=== PATIENT | male | born 1940 | race Caucasian/White ===

== ENCOUNTER 2024-04-21 05:24 | Outpatient (CLI) | payer OTHER, SELFPAY | END 2024-04-21 05:25 | disposition home or self-care (01) | LOC: AMB 05-16 22:13 | PROVIDERS: PCP Internal Medicine; Visit Provider Family Medicine | DX: R53.1 Weakness (principal) | CPT/HCPCS: A0998 ==

== ENCOUNTER 2024-04-25 17:51 | Emergency (ER) | payer OTHER, SELFPAY ==
[2024-04-25 17:56] VITALS: BP 155/84; PULSE 112; RESP 22; TEMP 37.6; O2SAT 95; BMI 38.7
[2024-04-25 18:18] VITALS: O2SAT 95
--- NOTE | 2024-04-25 18:19 | CRLHL7_ITS ---
For Patients: As a result of the Century Cures Act, medical imaging exams and procedure reports are released immediately into your electronic medical record. You may view this report before your referring provider. If you have questions, please contact your health care provider. INDICATION: Dyspnea. TECHNIQUE: Chest radiograph, 1 view. COMPARISON: None. FINDINGS: Cardiovascular/Mediastinum: Normal heart size. Unremarkable. Lungs: No focal consolidation. Airways: Trachea remains midline. Pleura: No pleural effusions or pneumothorax. Bones: No acute osseous abnormalities. Upper abdomen: Unremarkable. IMPRESSION: No acute cardiopulmonary process. No focal consolidation seen to suggest pneumonia. Dictated by Jakub Palacios MD @ 04/25/2024 6:53:26 PM (Electronically Signed)
--- NOTE | 2024-04-25 18:20 | ED_ITS ---
HPI - General Adult General Chief complaint: Fall/Minor Trauma Stated complaint: Covid symptoms, fall on Saturday, tested positive Time Seen by Provider: 04/25/24 18:07 History of Present Illness HPI narrative: Patient is an 83 year white male who lives at [facility] in [facility]. The patient this point has had a runny nose and now increasing cough. Had a home COVID test was positive today. He does not feel markedly short of breath but has had a regular cough. He is living at the [facility] he is able to isolate in his room. Does not feel short of breath. He did fall earlier in the week and needed help from EMS to get up but he does not feel weak and he is wal debbie pretty well right now with his walker. He is here with his daughter was concerned and [facility]. patient has a history of what looks like mild dementia, hard of hearing, and he is on apixaban donepezil and sertraline. No swelling or edema. The patient has been taking all his medications. Patient did report that he had a runny nose when his family left for vacation. They came back today and noticed he was coughing more. His O2 sat today is 95% on room air and he has got a low-grade temperature 99.7?. The [facility]. Related Data Home Medications ?Medication ?Instructions ?Recorded ?Confirmed apixaban 5 mg tablet (Eliquis) 5 mg PO BID 04/25/24 04/25/24 atorvastatin 40 mg tablet 40 mg PO QHS 04/25/24 04/25/24 donepezil 10 mg tablet 10 mg PO DAILY 04/25/24 04/25/24 omega-3 fatty acids 500 mg capsule 500 mg PO DAILY 04/25/24 04/25/24 (MaxEPA) sertraline 100 mg tablet 100 mg PO DAILY 04/25/24 04/25/24 Allergies Allergy/AdvReac Type Severity Reaction Status Date / Time No Known Drug Allergies Allergy Verified 04/25/24 18:03 Review of Systems Status of ROS: Reports: 6 or more systems reviewed and unremarkable except as noted in History and below [facility] Medical History Depression ?F32.A - Depression, unspecified (ICD-10) Hypertension ?I10 - Essential (primary) hypertension (ICD-10) Hyperlipidemia ?E78.5 - Hyperlipidemia, unspecified (ICD-10) Hyperlipidemia ?E78.5 - Hyperlipidemia, unspecified (ICD-10) 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 unspecified ear and external auricular canal (ICD-10) TIA (transient ischemic attack) ?G45.9 - Transient cerebral ischemic attack, unspecified (ICD-10) DVT (deep venous thrombosis) ?I82.409 - Acute embolism and thrombosis of unspecified deep veins of unspecified lower extremity (ICD-10) Pulmonary embolism ?I26.99 - Other pulmonary embolism without acute cor pulmonale (ICD-10) Surgical History History of bilateral knee replacement ?Z96.653 - Presence of artificial knee joint, bilateral (ICD-10) Social History Smoking Status: Former smoker Do you use any of these nicotine containing products: None How often do you have a drink containing alcohol: never How often do you have six or more drinks on one occasion: Never AUDIT-C Alcohol total score: 0 Non-prescribed substance use: denies use service: Yes Exam Narrative: Exam Narrative: Objective: Patient's temp is 99.7? pulse 112 and regular blood pressure is 155/84 O2 sat on room air is 95% In general patient apparent distress he is ambulating with his walker quite steadily, AO walked into the room with him. HEENT is unremarkable Neck is supple Chest diminished air exchange bilaterally but no rales or wheezing Heart rhythm regular 2/6 systolic murmur occasional ectopic beat noted Abdomen obese benign nontender Extremities are no edema neurologic nonfocal Const: Vital Signs, click to edit/add: Vital Signs - 24 hr 04/25/24 17:56 04/25/24 18:18 04/25/24 19:22 Temperature 99.7 F H 99.5 F Pulse Rate [Pulse Oximeter] 112 H 100 Respiratory Rate 22 22 Blood Pressure [Ri ght Upper Arm] 155/84 H 145/74 H Pulse Oximetry 95 95 95 Oxygen Delivery Me thod Room Air Room Air 04/25/24 19:25 Temperature 99.5 F Pulse Rate [Pulse Oximeter] 100 Respiratory Rate 22 Blood Pressure [Ri ght Upper Arm] 145/74 H Pulse Oximetry Oxygen Delivery Me thod Course Vital Signs Vital signs: Initial Vital Signs Temperature 99.7 F H 04/25/24 17:56 Temperature Source Temporal Artery Scan 04/25/24 17:56 Pulse Rate 112 H 04/25/24 17:56 Respiratory Rate 22 04/25/24 17:56 Blood Pressure 155/84 H 04/25/24 17:56 Blood Pressure Mean 107 H 04/25/24 17:56 Blood Pressure Position Sitting 04/25/24 17:56 Pulse Oximetry 95 04/25/24 17:56 Oxygen Delivery Method Room Air 04/25/24 17:56 Vital Signs Temperature 99.7 F H 04/25/24 17:56 Pulse Rate 112 H 04/25/24 17:56 Respiratory Rate 22 04/25/24 17:56 Blood Pressure 155/84 H 04/25/24 17:56 Pulse Oximetry 95 04/25/24 17:56 Oxygen Delivery Method Room Air 04/25/24 17:56 Temperature 99.5 F 04/25/24 19:25 Pulse Rate 100 04/25/24 19:25 Respiratory Rate 22 04/25/24 19:25 Blood Pressure 145/74 H 04/25/24 19:25 Pulse Oximetry 95 04/25/24 19:22 Oxygen Delivery Method Room Air 04/25/24 19:22 Medications Administered Medications: Discontinued Medications Generic Name Dose Route Start Last Admin Trade Name Freq PRN Reason Stop Dose Admin Sodium Chloride 500 mls @ 500 mls/hr 04/25/24 18:18 04/25/24 19:14 0.9 % Sodium Chloride 500 Ml IV 04/25/24 19:17 Infused .Q1H ONE Infusion Methylprednisolone Sodium Succinate 125 mg 04/25/24 18:19 04/25/24 19:00 Methylprednisolone Sod Succ 62.5 Mg/Ml (125) IVP 04/25/24 18:20 125 mg ONCE ONE Administration Medical Decision Making MDM Narrative Medical decision making narrative: 83-year-old male with diagnosis of COVID today on a home test. His symp toms are consistent with COVID. I think it would be appropriate to check an x- ray of his chest to see if he has any evidence of segmental pneumonia. Certainly even if we see that the could be related to a viral infection. But would probably cover with him with antibiotics and steroids at his age. He did apparently have some faint wheezing at the center. And I think it be appropriate to give him a few days of steroid medication if indicated. Will check his blood work as well. Will check a chest x-ray. Disposition pending findings above. Addendum 7:00 p.m.: Patient has a fever, he does have a positive COVID test at home, he does not describe chronic lung disease but I do not have his medical record. I do see on his chest x-ray one view these got some left lower lobe infiltrate that I think is probably related to COVID but radiologist did not think it was pneumonia. I think in the interest of caution I would cover him with doxycycline 100 b.i.d. x7 days as well as prednisone 20 mg b.i.d. for a few days to make sure that he has adequate help with wheezing and potential bacterial component of an infection. Or superinfection. With his COVID he needs isolate until he is feeling well per the [employer] rules, he should at least be fever free and feel well for 3-4 days before he is out back in the population. Return if problems or concerns. Push p.o. intake. Lab Data Labs: Lab Results 04/25/24 Range/Units 18:35 WBC 5.02 (4.50-11.00) K/uL RBC 3.68 L (4.30-5.90) m/uL Hgb 10.9 L (13.5-17.5) gm/dL Hct 34.4 L (37.0-53.0) % MCV 94 (80-100) fL MCH 30 (26-34) pg MCHC 32 (32-36) gm/dL RDW Coeff of Katt 13.9 (11.5-15.5) % Plt Count 269 (140-440) K/uL Neut % (Auto) 82.6 H (42.0-72.0) % Lymph % (Auto) 10.2 L (20-44) % [place] % (Auto) 4.6 (0.0-11.0) % Eos % (Auto) 2.4 (0.0-7.0) % Baso % (Auto) 0.2 (0.0-3.0) % Neut # (Auto) 4.10 (1.7-7.0) K/uL Lymph # (Auto) 0.50 L (0.90-2.90) K/uL [place] # (Auto) 0.20 (0.00-0.90) K/UL Eos # (Auto) 0.12 (0.00-0.50) K/uL Baso # (Auto) 0.01 (0.00-0.30) K/uL Abs Immat Gran (auto) 0.00 (0.00-0.30) K/uL Imm/Tot Granulo (auto) 0.0 % Sodium 136 (135-149) mmol/L Potassium 4.0 (3.6-5.1) mmol/L Chloride 103 (96-114) mmol/L Carbon Dioxide 28 (20-32) mmol/L Anion Gap 5 L (7-15) mEq/L BUN 15 (7-30) mg/dL Creatinine 1.0 (0.5-1.5) mg/dL Estimated Creat Clear 49.62 Estimated GFR 74 ml/min Glucose 125 H (60-115) mg/dL Calcium 8.7 (8.4-10.6) mg/dL Discharge Plan Discharge Clinical Impression: COVID-19 Patient Disposition: Home w/ Parent or Adult Condition: Stable Additional Instructions: Light activity, adequate fluid intake, prednisone 20 mg b.i.d. for 3 days, update your regular doctor within the next 48 hours with symptoms, return to ED sooner worsening breathing or other concerns.also take doxycycline Activity Level: Light activity Discharge Diet: Regular Prescriptions: No Action donepezil 10 mg tablet 10 mg PO DAILY sertraline 100 mg tablet 100 mg PO DAILY atorvastatin 40 mg tablet 40 mg PO QHS Eliquis 5 mg tablet 5 mg PO BID MaxEPA 500 mg capsule 500 mg PO DAILY Stand Alone Forms: [employer] Info Instructions
[2024-04-25] MEDS: 0.9 % SODIUM CHLORIDE 500 ML 500 ML IV (18:30)
[2024-04-25 18:45] LABS: Basophils Absolute Auto 0.01 K/uL (0.00-0.30); Basophils Percent Auto 0.2 % (0.0-3.0); Eosinophils Absolute Auto 0.12 K/uL (0.00-0.50); Eosinophils Percent Auto 2.4 % (0.0-7.0); Hematocrit 34.4 % (37.0-53.0); Hemoglobin* 10.9 gm/dL (13.5-17.5); Lymphocytes Percent Auto 10.2 % (20-44); Mean Corpuscular HGB Conc 32 gm/dL (32-36); Mean Corpuscular Hemoglobin 30 pg (26-34); Mean Corpuscular Volume 94 fL (80-100); Monocytes Percent Auto 4.6 % (0.0-11.0); Neutrophils Percent Auto 82.6 % (42.0-72.0); Platelet Count* 269 K/uL (140-440); RDW Coefficient of Variation % 13.9 % (11.5-15.5); Red Blood Count 3.68 m/uL (4.30-5.90); White Blood Count* 5.02 K/uL (4.50-11.00)
[2024-04-25 18:49] LABS: Slide Review Reflex No
[2024-04-25 18:58] LABS: Chloride* 103 mmol/L (96-114); Sodium* 136 mmol/L (135-149)
[2024-04-25] MEDS: METHYLPREDNISOLONE SOD SUCC 62.5 MG/ML (125) 125 MG IVP (19:00)
[2024-04-25 19:01] LABS: Est. Creatinine Clearance* 49.62; Estimated Glomerular Filt Rate 74 ml/min
[2024-04-25 19:02] LABS: Anion Gap 5 mEq/L (7-15); Blood Urea Nitrogen* 15 mg/dL (7-30); Calcium* 8.7 mg/dL (8.4-10.6); Carbon Dioxide* 28 mmol/L (20-32); Glucose* 125 mg/dL (60-115)
[2024-04-25 19:22] VITALS: BP 145/74; PULSE 100; RESP 22; TEMP 37.5; O2SAT 95
[2024-04-25 19:25] VITALS: BP 145/74; PULSE 100; RESP 22; TEMP 37.5
== END 2024-04-25 19:26 | disposition home or self-care (01) ==
PROVIDERS: Emergency Provider Family Medicine; PCP Internal Medicine
DX: U07.1 COVID-19 (principal)
CPT/HCPCS: 36415; 71045; 80048; 85025; 94761; 96374; 99284; J2919; J7030

== ENCOUNTER 2024-07-03 11:36 | Emergency (ER) | payer OTHER, SELFPAY ==
[2024-07-03 11:49] VITALS: BP 140/84; PULSE 85; RESP 28; TEMP 37.6; O2SAT 97; BMI 81.1
--- NOTE | 2024-07-03 12:12 | CRLHL7_ITS ---
For Patients: As a result of the Cures Act, medical imaging exams and procedure reports are released immediately into your electronic medical record. You may view this report before your referring provider. If you have questions, please contact your health care provider. INDICATION: : Shortness of breath COMPARISON: None TECHNIQUE: Two view(s) of the chest FINDINGS: The cardiomediastinal silhouette and pulmonary vasculature are unremarkable. There is no focal airspace consolidation, pleural effusion, or pneumothorax. No displaced fractures. Degenerative changes of the shoulders and spine. IMPRESSION: No acute cardiopulmonary process. Dictated by Pedro Parr MD @ 07/03/2024 1:22:00 PM (Electronically Signed)
[2024-07-03 12:58] LABS: Basophils Absolute Auto 0.02 K/uL (0.00-0.30); Basophils Percent Auto 0.4 % (0.0-3.0); Hematocrit 38.5 % (37.0-53.0); Hemoglobin* 12.1 gm/dL (13.5-17.5); Immature Granulocytes Abs Auto 0.03 K/uL (0.00-0.30); Immature Granulocytes Pct Auto 0.6 %; Lymphocytes Percent Auto 15.1 % (20-44); Mean Corpuscular HGB Conc 31 gm/dL (32-36); Mean Corpuscular Hemoglobin 29 pg (26-34); Mean Corpuscular Volume 93 fL (80-100); Monocytes Percent Auto 6.2 % (0.0-11.0); Neutrophils Percent Auto 73.7 % (42.0-72.0); Platelet Count* 205 K/uL (140-440); RDW Coefficient of Variation % 15.5 % (11.5-15.5); Red Blood Count 4.14 m/uL (4.30-5.90); White Blood Count* 5.04 K/uL (4.50-11.00)
[2024-07-03 13:00] LABS: Slide Review Reflex No
[2024-07-03 13:02] LABS: Albumin* 4.6 g/dL (3.3-5.0); Chloride* 102 mmol/L (96-114)
[2024-07-03 13:03] LABS: Sodium* 137 mmol/L (135-149)
[2024-07-03 13:05] LABS: Creatinine* 0.9 mg/dL (0.5-1.5); Est. Creatinine Clearance* 50.49; Estimated Glomerular Filt Rate 84 ml/min
[2024-07-03 13:06] LABS: Alanine Aminotransferase* 13 U/L (4-50); Alkaline Phosphatase* 63 U/L (40-150); Anion Gap 10 mEq/L (7-15); Aspartate Amino Transferase* 26 U/L (12-35); Bilirubin Direct* 0.3 mg/dL (0.0-0.5); Bilirubin Total* 0.6 mg/dL (0.1-1.5); Blood Urea Nitrogen* 13 mg/dL (7-30); Carbon Dioxide* 25 mmol/L (20-32); Glucose* 129 mg/dL (60-115); Total Protein* 7.6 g/dL (6.0-8.3)
[2024-07-03 13:07] LABS: Calcium* 9.4 mg/dL (8.4-10.6)
[2024-07-03 13:17] LABS: NT Pro B Type NatriureticPept* 367 pg/mL
[2024-07-03 13:24] LABS: Troponin I* < 0.01 ng/mL (0.01-0.04)
--- NOTE | 2024-07-03 13:38 | ED.GENADULT ---
HPI - General Adult General Chief complaint: Headache/Migraine Stated complaint: headache, twitching, vaccinated yesterday Time Seen by Provider: 07/03/24 11:42 Source: patient Mode of arrival: ambulatory Limitations: no limitations History of Present Illness HPI narrative: With 84-year-old male presenting today with several concerns. He has pain behind his right ear. This has been present for about 2 months. He states that the pain comes and goes. He describes it as a muscle spasm. Sometimes it causes full headache. 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 He denies any fevers or chills. He is not coughing. He denies any blurry vision or changes in his hearing. He denies any changes in his speech. There is no pain with closing and opening of the jaw. There is no drainage from the ear. He does have hearing loss and uses a hearing aid, has not had his hearing aid in place for quite some time secondary to the discomfort. Although he does state that putting the hearing aid in does not increased pain. He is also concerned about lower extremity swelling. It has been swollen for quite some time but in the last couple of weeks the swelling has gotten worse. He denies any shortness of breath, no chest pain. The patient does not take a diuretic. He has no history of congestive heart failure. Patient has dementia, is a very poor historian. Family member in the room is able to give a lot of history. Related Data Home Medications ?Medication ?Instructions ?Recorded ?Confirmed apixaban 5 mg tablet (Eliquis) 5 mg PO BID 04/25/24 04/25/24 atorvastatin 40 mg tablet 40 mg PO QHS 04/25/24 04/25/24 donepezil 10 mg tablet 10 mg PO DAILY 04/25/24 04/25/24 omega-3 fatty acids 500 mg capsule 500 mg PO DAILY 04/25/24 04/25/24 (MaxEPA) sertraline 100 mg tablet 100 mg PO DAILY 04/25/24 04/25/24 Allergies Allergy/AdvReac Type Severity Reaction Status Date / Time No Known Drug Allergies Allergy Verified 04/25/24 18:03 Review of Systems Status of ROS: Reports: 10 or more systems reviewed and unremarkable except as noted in History and below [facility] Medical History Depression ?F32.A - Depression, unspecified (ICD-10) Hypertension ?I10 - Essential (primary) hypertension (ICD-10) Hyperlipidemia ?E78.5 - Hyperlipidemia, unspecified (ICD-10) Hyperlipidemia ?E78.5 - Hyperlipidemia, unspecified (ICD-10) 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 unspecified ear and external auricular canal (ICD-10) TIA (transient ischemic attack) ?G45.9 - Transient cerebral ischemic attack, unspecified (ICD-10) DVT (deep venous thrombosis) ?I82.409 - Acute embolism and thrombosis of unspecified deep veins of unspecified lower extremity (ICD-10) Pulmonary embolism ?I26.99 - Other pulmonary embolism without acute cor pulmonale (ICD-10) Surgical History History of bilateral knee replacement ?Z96.653 - Presence of artificial knee joint, bilateral (ICD-10) Social History Smoking Status: Former smoker Do you use any of these nicotine containing products: None Second hand tobacco smoke exposure: No How often do you have a drink containing alcohol: never How often do you have six or more drinks on one occasion: Never AUDIT-C Alcohol total score: 0 Non-prescribed substance use: denies use service: Yes Exam Narrative: Exam Narrative: Well-nourished well-developed patient in no acute distress. Patient speaks in full sentences without needing to catch their breath. HEENT: Normocephalic atraumatic. Pupils are equally round reactive to light. Extraocular muscles are intact. Conjunctivae are moist without any icterus noted. Moist mucous membranes. Posterior pharynx is normal. Neck is soft without any lymphadenopathy or thyromegaly. No masses are appreciated. Ears have normal external appearance. The area of tenderness is not tender to palpation, there is no swelling or bogginess noted. He can open and close his jaw without any discomfort. There is no abnormalities noted inside of the mouth aside from some poor dentition but no evidence of infection. TMs are clear bilaterally, ear canals appear normal. He has tenderness with tugging of the ear. No tenderness noted at the back of the head. Cardiovascular: Heart is regular rate and rhythm S1 and S2 are present without any murmurs. Lungs: Clear to auscultation bilaterally no wheezes rhonchi or rales are appreciated. Patient takes deep breaths without any discomfort. Abdomen: Soft and nontender nondistended with normal bowel sounds. Extremities: 2+ pitting edema bilaterally. Skin: Well perfused without any obvious rashes. Const: Vital Signs, click to edit/add: Vital Signs - 24 hr 07/03/24 11:49 Temperature 99.6 F Pulse Rate [Pulse Oximeter] 85 Respiratory Rate 28 H Blood Pressure [Ri ght Forearm] 140/84 H Pulse Oximetry 97 Oxygen Delivery Me thod Room Air Course Course ED Course: Differential diagnosis at this time includes TMJ dysfunction, occipital neuralgia, migraine, muscle spasm, giant cell arteritis-atypical presentation. Started with some blood work: CBC is unremarkable. Normal chemistries. Normal troponin. Normal CRP. Unremarkable BNP at 367. Normal TSH. EKG, read by me, shows normal sinus rhythm with a first-degree AV block, pulse 83. Chest x-ray was also done to make sure the patient did not have any fluid buildup in the chest, this was unremarkable. Discussed blood work with patient's daughter, we discussed the possibility of occipital neuralgia causing his symptoms and the recommendation of head and neck MRI. During the time that he was waiting for his lab she states that he is feeling significantly better and is now asymptomatic. I re-examined the patient and he has no tenderness to palpation around the ear and no longer has any tenderness with tugging of the ear. At this time they feel that imaging is not necessary. They have a follow-up appointment with primary care in approximately 2 weeks and will discuss symptoms at that time. Vital Signs Vital signs: Initial Vital Signs Temperature 99.6 F 07/03/24 11:49 Temperature Source Temporal Artery Scan 07/03/24 11:49 Pulse Rate 85 07/03/24 11:49 Pulse Rhythm Regular 07/03/24 11:49 Respiratory Rate 28 H 07/03/24 11:49 Blood Pressure 140/84 H 07/03/24 11:49 Blood Pressure Mean 102 07/03/24 11:49 Blood Pressure Position Supine 07/03/24 11:49 Pulse Oximetry 97 07/03/24 11:49 Oxygen Delivery Method Room Air 07/03/24 11:49 Vital Signs Temperature 99.6 F 07/03/24 11:49 Pulse Rate 85 07/03/24 11:49 Respiratory Rate 28 H 07/03/24 11:49 Blood Pressure 140/84 H 07/03/24 11:49 Pulse Oximetry 97 07/03/24 11:49 Oxygen Delivery Method Room Air 07/03/24 11:49 Temperature 99.6 F 07/03/24 11:49 Pulse Rate 85 07/03/24 11:49 Respiratory Rate 28 H 07/03/24 11:49 Blood Pressure 140/84 H 07/03/24 11:49 Pulse Oximetry 97 07/03/24 11:49 Oxygen Delivery Method Room Air 07/03/24 11:49 Medical Decision Making MDM Narrative Medical decision making narrative: 84-year-old male with pain posterior to the ear, unclear etiology. Consider occipital neuralgia if the pain returns. Vascular insufficiency of lower extremities we discussed elevation and compression stockings. Patient will follow up with primary care in 2 weeks. Lab Data Lab results reviewed: Yes I reviewed the patient's lab results Labs: Lab Results 07/03/24 Range/Units 12:35 WBC 5.04 (4.50-11.00) K/uL RBC 4.14 L (4.30-5.90) m/uL Hgb 12.1 L (13.5-17.5) gm/dL Hct 38.5 (37.0-53.0) % MCV 93 (80-100) fL MCH 29 (26-34) pg MCHC 31 L (32-36) gm/dL RDW Coeff of Katt 15.5 (11.5-15.5) % Plt Count 205 (140-440) K/uL Neut % (Auto) 73.7 H (42.0-72.0) % Lymph % (Auto) 15.1 L (20-44) % [place] % (Auto) 6.2 (0.0-11.0) % Eos % (Auto) 4.0 (0.0-7.0) % Baso % (Auto) 0.4 (0.0-3.0) % Neut # (Auto) 3.70 (1.7-7.0) K/uL Lymph # (Auto) 0.80 L (0.90-2.90) K/uL [place] # (Auto) 0.30 (0.00-0.90) K/UL Eos # (Auto) 0.20 (0.00-0.50) K/uL Baso # (Auto) 0.02 (0.00-0.30) K/uL Abs Immat Gran (auto) 0.03 (0.00-0.30) K/uL Imm/Tot Granulo (auto) 0.6 % Sodium 137 (135-149) mmol/L Potassium 4.0 (3.6-5.1) mmol/L Chloride 102 (96-114) mmol/L Carbon Dioxide 25 (20-32) mmol/L Anion Gap 10 (7-15) mEq/L BUN 13 (7-30) mg/dL Creatinine 0.9 (0.5-1.5) mg/dL Estimated Creat Clear 50.49 Estimated GFR 84 ml/min Glucose 129 H (60-115) mg/dL Calcium 9.4 (8.4-10.6) mg/dL Total Bilirubin 0.6 (0.1-1.5) mg/dL Direct Bilirubin 0.3 (0.0-0.5) mg/dL AST 26 (12-35) U/L ALT 13 (4-50) U/L Alkaline Phosphatase 63 (40-150) U/L Troponin I < 0.01 L (0.01-0.04) ng/mL C-Reactive Protein 1.0 (0.5-1.0) mg/dL NT-Pro-B Natriuret Pep 367 pg/mL Total Protein 7.6 (6.0-8.3) g/dL Albumin 4.6 (3.3-5.0) g/dL TSH 1.840 (0.270-4.20) uIU/mL Imaging Data Chest x-ray: Attestation: I have reviewed the pertinent imaging results. Radiologist's impression: wo view(s) of the chest FINDINGS: The cardiomediastinal silhouette and pulmonary vasculature are unremarkable. There is no focal airspace consolidation, pleural effusion, or pneumothorax. No displaced fractures. Degenerative changes of the shoulders and spine. IMPRESSION: No acute cardiopulmonary process. ECG Data Attestation: I personally reviewed and interpreted this ECG as follows: Discharge Plan Discharge Clinical Impression: Headache, Localized swelling of both lower legs Patient Disposition: Home, Self-Care Condition: Stable Additional Instructions: Follow-up with your primary care provider to discuss symptoms. If pain in the head comes back, consider something call occipital neuralgia. If this is the case MRI of head and neck as recommended, this is something you can discuss with your primary care provider. Prescriptions: No Action donepezil 10 mg tablet 10 mg PO DAILY sertraline 100 mg tablet 100 mg PO DAILY atorvastatin 40 mg tablet 40 mg PO QHS Eliquis 5 mg tablet 5 mg PO BID MaxEPA 500 mg capsule 500 mg PO DAILY Follow Up/Referrals: Eduard Rossi MD [Primary Care Provider] - Stand Alone Forms: bubl Info Instructions
[2024-07-03 14:06] LABS: Erythrocyte SedimentationRate* 26 mm/hr (2-15)
== END 2024-07-03 14:11 | disposition home or self-care (01) ==
PROVIDERS: Emergency Provider Family Medicine; PCP Internal Medicine
DX: R51.9 Headache, unspecified (principal); R22.43 Localized swelling, mass and lump, lower limb, bilateral
CPT/HCPCS: 36415; 71046; 80048; 80076; 83880; 84443; 84484; 85025; 85651; 86140; 93005; 99284; 99285

== ENCOUNTER 2024-10-28 14:19 | Emergency (ER) | payer OTHER, SELFPAY ==
[2024-10-28 14:23] VITALS: BP 139/74; PULSE 79; RESP 18; TEMP 37; O2SAT 97; BMI 36.5
--- NOTE | 2024-10-28 14:39 | ED_ITS ---
HPI - General Adult General Time Seen by Provider: 14:39 Date Seen: 10/28/24 Chief complaint: Cough Stated complaint: trouble breathing Time Seen by Provider: 10/28/24 14:26 Source: patient and RN notes reviewed Mode of arrival: ambulatory Limitations: no limitations History of Present Illness HPI narrative: This 84-year-old patient is coming from [facility] where he resides with concern of coughing. He has been coughing for while now, has had ongoing neg in productive cough. Since yesterday he has been becoming more hoarse, is complaining of right-sided sore throat. However, while I was in talking to him, he coughed and then stated the left side was hurting as well. His hoarseness has been getting worse since Saturday reportedly. He notes his sputum is brown in color. He did feel more short of breath with exertion today but is not having any baseline shortness of breath. He is not on any oxygen. 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 He is not aware of any fevers. He does believe that he probably got his flu shot and COVID shot if it was offered over there this fall, does not specifically remember. Appetite reportedly has been diminished but there is no nausea vomiting or diarrhea, no abdominal pain. Related Data Home Medications ?Medication ?Instructions ?Recorded ?Confirmed apixaban 5 mg tablet (Eliquis) 5 mg PO BID 04/25/24 10/28/24 atorvastatin 40 mg tablet 40 mg PO QHS 04/25/24 10/28/24 donepezil 10 mg tablet 10 mg PO DAILY 04/25/24 10/28/24 omega-3 fatty acids 500 mg capsule 500 mg PO DAILY 04/25/24 10/28/24 (MaxEPA) sertraline 100 mg tablet 100 mg PO DAILY 04/25/24 10/28/24 multivitamin 1 tab PO QDAY 09/02/24 10/28/24 Previous Rx's ?Medication ?Instructions ?Recorded amoxicillin 500 mg-potassium 1 tab PO BID #13 tabs 10/28/24 clavulanate 125 mg tablet (Augmentin) Allergies Allergy/AdvReac Type Severity Reaction Status Date / Time No Known Drug Allergies Allergy Verified 10/28/24 14:32 Review of Systems Status of ROS: Reports: 6 or more systems reviewed and unremarkable except as noted in History and below PFSH PFS Medical History Depression ?F32.A - Depression, unspecified (ICD-10) Hypertension ?I10 - Essential (primary) hypertension (ICD-10) Hyperlipidemia ?E78.5 - Hyperlipidemia, unspecified (ICD-10) Hyperlipidemia ?E78.5 - Hyperlipidemia, unspecified (ICD-10) 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 unspecified ear and external auricular canal (ICD-10) TIA (transient ischemic attack) ?G45.9 - Transient cerebral ischemic attack, unspecified (ICD-10) DVT (deep venous thrombosis) ?I82.409 - Acute embolism and thrombosis of unspecified deep veins of unspecified lower extremity (ICD-10) Pulmonary embolism ?I26.99 - Other pulmonary embolism without acute cor pulmonale (ICD-10) Surgical History History of bilateral knee replacement ?Z96.653 - Presence of artificial knee joint, bilateral (ICD-10) Social History What is your current living situation?: I presently have a place to live Problems where you live: no known problems In the past 12 months, utilities in danger of being shut off: no In past 12 months, lack of transportation kept you from medical appts, meetings, work, or getting things needed for daily living: no In the past 12 mos, have been you worried that your food would run out before you had money to buy more?: never true In the past 12 mos, the food you bought just didn't last and you didn't have money to buy more?: never true Smoking Status: Former smoker Do you use any of these nicotine containing products: None Second hand tobacco smoke exposure: No How often do you have a drink containing alcohol: never How often do you have six or more drinks on one occasion: Never AUDIT-C Alcohol total score: 0 Non-prescribed substance use: denies use How often does anyone, including family, friends and others, physically hurt you : never How often does anyone, including family, friends and others, insult or talk down to you: never How often does anyone, including family, friends and others, threaten you with harm: never How often does anyone, including family, friends and others, scream or curse at you: never service: Yes Exam Const: Vital Signs, click to edit/add: Vital Signs - 24 hr 10/28/24 14:23 Temperature 98.6 F Pulse Rate [Right Pulse Oximeter] 79 Respiratory Rate 18 Blood Pressure [Ri ght Upper Arm] 139/74 Pulse Oximetry 97 Oxygen Delivery Me thod Room Air This 84-year-old male is alert, interactive, no apparent distress. He overall seems to be pale but sclera clear, conjugate gaze, extraocular muscles intact. He has a hoarse voice but is able to speak in complete sentences, oropharynx normal, no exudates erythema, posterior pharynx looks normal. Neck is supple, no adenopathy, no masses, no tenderness. Lungs actually are clear, no wheezing or crackles. He does cough up some yellowish sputum when I am in with him. He has no tachypnea, no accessory muscle use. CV regular rate and rhythm, no murmur, normal S1-S2, no S3-S4. No significant lower extremity edema. Abdomen is obese but soft, nontender. Documenting provider has reviewed patient's vital signs: yes Course Course ED Course: Patient is experiencing hoarseness, sore throat which certainly seems consistent with laryngitis. I have seen influenza A do this this year. Triple viral swab is pending. With his productive cough, need to consider viral versus bacterial pneumonia. Will do full complement of labs. He will be monitored on pulse oximetry. He is having no chest pain with this, not short of breath. Doubtful that this is any manifestation of any cardiac disease. Reevaluation(s) Time of Reevaluation #1: 16:43 Reevaluation #1: Have reviewed with patient that his chest x-ray is not showing anything, labs overall are reassuring with the exception of the C reactive protein of 6.6. With his complaints of laryngitis type symptoms that are worsening, increased sputum production, we are going to proceed with soft tissue neck and chest imaging to ensure that we are not missing bacterial infectious etiology. Time of Reevaluation #2: 18:19 Reevaluation #2: Have reviewed with patient that this soft tissue neck is not showing any concerning swelling. It is likely that he just has laryngitis. There is no evidence of abscess, no significant infection, airway looks good. There was some motion degradation around the larynx itself but he is proved to have no difficulty while he has been here. We are still awaiting his chest CT to be read. Did want his IV removed but reviewed with him that I would recommend holding off on that. If for some reason they do see pneumonia, would consider doing IV antibiotics initially. He does agree to wait. Time of Reevaluation #3: 18:28 Vital Signs Vital signs: Initial Vital Signs Temperature 98.6 F 10/28/24 14:23 Temperature Source Temporal Artery Scan 10/28/24 14:23 Pulse Rate 79 10/28/24 14:23 Pulse Rhythm Regular 10/28/24 14:23 Pulse Strength 3+ Normal 10/28/24 14:23 Respiratory Rate 18 10/28/24 14:23 Blood Pressure 139/74 10/28/24 14:23 Blood Pressure Mean 95 10/28/24 14:23 Blood Pressure Position Sitting 10/28/24 14:23 Pulse Oximetry 97 10/28/24 14:23 Oxygen Delivery Method Room Air 10/28/24 14:23 Vital Signs Temperature 98.6 F 10/28/24 14:23 Pulse Rate 79 10/28/24 14:23 Respiratory Rate 18 10/28/24 14:23 Blood Pressure 139/74 10/28/24 14:23 Pulse Oximetry 97 10/28/24 14:23 Oxygen Delivery Method Room Air 10/28/24 14:23 Temperature 98.6 F 10/28/24 14:23 Pulse Rate 79 10/28/24 14:23 Respiratory Rate 18 10/28/24 14:23 Blood Pressure 139/74 10/28/24 14:23 Pulse Oximetry 97 10/28/24 14:23 Oxygen Delivery Method Room Air 10/28/24 14:23 Medical Decision Making Lab Data Lab results reviewed: Yes I reviewed the patient's lab results Labs: Lab Results 10/28/24 10/28/24 Range/Units 15:20 15:45 WBC 7.81 (4.50-11.00) K/uL RBC 3.57 L (4.30-5.90) m/uL Hgb 10.6 L (13.5-17.5) gm/dL Hct 33.0 L (37.0-53.0) % MCV 92 (80-100) fL MCH 30 (26-34) pg MCHC 32 (32-36) gm/dL RDW Coeff of Katt 14.7 (11.5-15.5) % Plt Count 293 (140-440) K/uL Neut % (Auto) 76.8 H (42.0-72.0) % Lymph % (Auto) 14.6 L (20-44) % [place] % (Auto) 4.0 (0.0-11.0) % Eos % (Auto) 4.0 (0.0-7.0) % Baso % (Auto) 0.3 (0.0-3.0) % Neut # (Auto) 6.00 (1.7-7.0) K/uL Lymph # (Auto) 1.10 (0.90-2.90) K/uL [place] # (Auto) 0.30 (0.00-0.90) K/UL Eos # (Auto) 0.31 (0.00-0.50) K/uL Baso # (Auto) 0.02 (0.00-0.30) K/uL Abs Immat Gran (auto) 0.02 (0.00-0.30) K/uL Imm/Tot Granulo (auto) 0.3 % VBG pH 7.410 (7.32-7.43) VBG pCO2 47 (40-50) mmHG VBG pO2 < 30.1 (25-47) mmHG VBG HCO3 30 H (21-28) mmol/L Sodium 136 (135-149) mmol/L Potassium 3.9 (3.6-5.1) mmol/L Chloride 102 (96-114) mmol/L Carbon Dioxide 29 (20-32) mmol/L Anion Gap 5 L (7-15) mEq/L BUN 14 (7-30) mg/dL Creatinine 1.0 (0.5-1.5) mg/dL Estimated Creat Clear 52.25 Estimated GFR 74 ml/min Glucose 110 (60-115) mg/dL Lactate 0.8 (0.5-1.9) mmol/L Calcium 8.5 (8.4-10.6) mg/dL Total Bilirubin 0.4 (0.1-1.5) mg/dL AST 19 (12-35) U/L ALT 14 (4-50) U/L Alkaline Phosphatase 66 (40-150) U/L Troponin I < 0.01 L (0.01-0.04) ng/mL C-Reactive Protein 6.6 H (0.5-1.0) mg/dL NT-Pro-B Natriuret Pep 344 pg/mL Total Protein 6.6 (6.0-8.3) g/dL Albumin 3.6 (3.3-5.0) g/dL SARS-CoV-2 (PCR) Negative SARS-CoV-2 (Negative) Influenza Type A (PCR) Negative PCR FLU A (Negative) Influenza Type B (PCR) Negative PCR FLU B (Negative) RSV (PCR) Negative PCR RSV (Negative) Imaging Data Chest x-ray: Attestation: I have reviewed the pertinent imaging results. Radiologist's impression: Patient: [facility] Facility:?[facility] Patient ID:?[id number] Site Patient [id number]:?[id number]. Site :?[id number] Study:?XRay-Chest PORTABLE-10/28/2024 3:20:15 PM Ordering Physician:?Mikael Fairbanks Final Report: INDICATION: Cough. TECHNIQUE: Chest 1 view. COMPARISON: July 03, 2024. FINDINGS: Cardiovascular and mediastinum: Cardiomediastinal silhouette is within normal limits. Lungs and pleural spaces: Lungs are clear. No evidence of pleural effusion. No pneumothorax identified. Bones and soft tissues: Unremarkable. IMPRESSION: No acute cardiopulmonary process identified. No significant interval change. Dictated by Bernadette Barcenas MD @ 10/28/2024 3:24:03 PM (Electronic Signature) CT soft tissue neck: Attestation: I have reviewed the pertinent imaging results. Radiologist's impression: Patient: [facility] Facility:?[facility] Patient ID:?[id number] Site Patient ID:?[id number]. Site :?[id number] Study:?CT-ST Neck W/ ISOVUE 370-10/28/2024 5:42:16 PM Ordering Physician:?Mikael Fairbanks Final Report: INDICATION: Worsening laryngitis. TECHNIQUE: CT images of the neck following intravenous contrast. COMPARISON: None. FINDINGS: Motion artifact degrades image quality at the level of the larynx. The nasopharynx, oropharynx, hypopharynx, and larynx are adequately patent in without enhancing lesions. The true vocal cords are partially adducted. No thickening of the epiglottis or retropharyngeal edema. No fluid collection. No enhancing lesions in the oral cavity or floor of mouth. The parotid and submandibular glands are unremarkable. The thyroid gland is unremarkable. No pathologically enlarged lymph nodes. Limited images through the brain without pathologic intracranial enhancement. Mild mucosal thickening in the visualized paranasal sinuses. Mastoid air cells are clear. Multilevel cervical spondylosis. No aggressive osseous lesions. No concerning opacities in the visualized lungs. IMPRESSION: Motion artifact degrades image quality at the level of the larynx. No mass, fluid collection, or pathologically enlarged lymph nodes. The airway is adequately patent. Please note that all CT scans at this facility use dose modulation, iterative reconstruction, and/or weight-based dosing when appropriate to reduce radiation dose to as low as reasonably achievable. Dictated by Delonte Hamilton MD @ 10/28/2024 6:10:30 PM (Electronic Signature) CT scan - chest: Attestation: I have reviewed the pertinent imaging results. Radiologist's impression: Patient: [facility] MENA Facility:?[facility] Patient ID:?[id number] Site Patient ID:?[id number]. Site :?[id number] Study:?CT-Chest W/ ISOVUE 370-10/28/2024 5:41:32 PM Ordering Physician:Michael Fairbanks Final Report: INDICATION: Cough, worsening illness. TECHNIQUE: CT chest was acquired with 108 cc Isovue 370 IV contrast. COMPARISON: None. FINDINGS: Lungs and pleura: No suspicious nodules or infiltrates. No pleural effusions, pleural thickening, or pneumothorax. Heart and vasculature: Heart size is normal. Thoracic aorta and pulmonary artery are normal in caliber. Coronary artery and thoracic aorta atherosclerotic calci fication. Lymph nodes/mediastinum: No mediastinal, hilar, or axillary adenopathy. Chest wall: No masses. Upper abdomen: No acute or significant findings. Bones: Unremarkable for age. IMPRESSION: No acute findings within the chest. Please note that all CT scans at this facility use dose modulation, iterative reconstruction, and/or weight-based dosing when appropriate to reduce radiation dose to as low as reasonably achievable. Dictated by Gumaro Hester MD @ 10/28/2024 6:23:18 PM (Electronic Signature) Discharge Plan Discharge Clinical Impression: Laryngitis Sinusitis Qualifiers: Sinusitis location: unspecified location Chronicity: acute Recurrence: not specified as recurrent Qualified Code(s): J01.90 - Acute sinusitis, unspecified Patient Disposition: Home, Self-Care Condition: Stable Instructions: Sinusitis (ED) Additional Instructions: Rest your voice, drink fluids, can try some lozenges for the hoarse voice. This should improve as your symptoms resolve. Postnasal drainage from your sinuses, coughing can all irritate the larynx. We will try short course of antibiotics to treat for sinusitis in see if that helps with your mucus production. There is no evidence of pneumonia on the CT. There is no evidence of any airway swelling or infection on CT imaging of the neck. If you are not improving over the next week, have further concerns or feel you are worsening at any point, please seek re-evaluation. Activity Level: Activity as Tolerated Prescriptions: New amoxicillin-pot clavulanate [Augmentin] 500-125 mg tablet 1 tab PO BID Qty: 13 0RF No Action multivitamin Tablet 1 tab PO QDAY donepezil 10 mg tablet 10 mg PO DAILY sertraline 100 mg tablet 100 mg PO DAILY atorvastatin 40 mg tablet 40 mg PO QHS Eliquis 5 mg tablet 5 mg PO BID MaxEPA 500 mg capsule 500 mg PO DAILY Follow Up/Referrals: Eduard Rossi MD [Primary Care Provider] - Stand Alone Forms: [employer] Info Instructions
--- NOTE | 2024-10-28 15:02 | CRLHL7_ITS ---
For Patients: As a result of the Cures Act, medical imaging exams and procedure reports are released immediately into your electronic medical record. You may view this report before your referring provider. If you have questions, please contact your health care provider. INDICATION: Cough. TECHNIQUE: Chest 1 view. COMPARISON: July 03, 2024. FINDINGS: Cardiovascular and mediastinum: Cardiomediastinal silhouette is within normal limits. Lungs and pleural spaces: Lungs are clear. No evidence of pleural effusion. No pneumothorax identified. Bones and soft tissues: Unremarkable. IMPRESSION: No acute cardiopulmonary process identified. No significant interval change. Dictated by Bernadette Barcenas MD @ 10/28/2024 3:24:03 PM (Electronically Signed)
[2024-10-28 15:30] LABS: HCO3 VBG 30 mmol/L (21-28); Lactate* 0.8 mmol/L (0.5-1.9); PCO2 VBG 47 mmHG (40-50); PO2 VBG < 30.1 mmHG (25-47)
[2024-10-28 15:31] LABS: Basophils Absolute Auto 0.02 K/uL (0.00-0.30); Basophils Percent Auto 0.3 % (0.0-3.0); Eosinophils Absolute Auto 0.31 K/uL (0.00-0.50); Hemoglobin* 10.6 gm/dL (13.5-17.5); Immature Granulocytes Abs Auto 0.02 K/uL (0.00-0.30); Immature Granulocytes Pct Auto 0.3 %; Lymphocytes Percent Auto 14.6 % (20-44); Mean Corpuscular HGB Conc 32 gm/dL (32-36); Mean Corpuscular Hemoglobin 30 pg (26-34); Mean Corpuscular Volume 92 fL (80-100); Neutrophils Percent Auto 76.8 % (42.0-72.0); Platelet Count* 293 K/uL (140-440); RDW Coefficient of Variation % 14.7 % (11.5-15.5); Red Blood Count 3.57 m/uL (4.30-5.90); White Blood Count* 7.81 K/uL (4.50-11.00)
[2024-10-28 15:41] LABS: Slide Review Reflex No
[2024-10-28 15:49] LABS: Albumin* 3.6 g/dL (3.3-5.0); Chloride* 102 mmol/L (96-114); Sodium* 136 mmol/L (135-149)
[2024-10-28 15:50] LABS: Potassium* 3.9 mmol/L (3.6-5.1)
[2024-10-28 15:52] LABS: Est. Creatinine Clearance* 52.25; Estimated Glomerular Filt Rate 74 ml/min
[2024-10-28 15:53] LABS: Alanine Aminotransferase* 14 U/L (4-50); Alkaline Phosphatase* 66 U/L (40-150); Anion Gap 5 mEq/L (7-15); Aspartate Amino Transferase* 19 U/L (12-35); Bilirubin Total* 0.4 mg/dL (0.1-1.5); Blood Urea Nitrogen* 14 mg/dL (7-30); Calcium* 8.5 mg/dL (8.4-10.6); Carbon Dioxide* 29 mmol/L (20-32); Glucose* 110 mg/dL (60-115); Total Protein* 6.6 g/dL (6.0-8.3)
[2024-10-28 15:56] LABS: C Reactive Protein* 6.6 mg/dL (0.5-1.0)
[2024-10-28 16:06] LABS: NT Pro B Type NatriureticPept* 344 pg/mL; Troponin I* < 0.01 ng/mL (0.01-0.04)
[2024-10-28 16:28] LABS: PCR FLU A Negative PCR FLU A (Negative); PCR FLU B Negative PCR FLU B (Negative); PCR RSV Negative PCR RSV (Negative); SARS PCR* Negative SARS-CoV-2 (Negative)
--- NOTE | 2024-10-28 16:40 | CRLHL7_ITS ---
For Patients: As a result of the Century Cures Act, medical imaging exams and procedure reports are released immediately into your electronic medical record. You may view this report before your referring provider. If you have questions, please contact your health care provider. INDICATION: Worsening laryngitis. TECHNIQUE: CT images of the neck following intravenous contrast. COMPARISON: None. FINDINGS: Motion artifact degrades image quality at the level of the larynx. The nasopharynx, oropharynx, hypopharynx, and larynx are adequately patent in without enhancing lesions. The true vocal cords are partially adducted. No thickening of the epiglottis or retropharyngeal edema. No fluid collection. No enhancing lesions in the oral cavity or floor of mouth. The parotid and submandibular glands are unremarkable. The thyroid gland is unremarkable. No pathologically enlarged lymph nodes. Limited images through the brain without pathologic intracranial enhancement. Mild mucosal thickening in the visualized paranasal sinuses. Mastoid air cells are clear. Multilevel cervical spondylosis. No aggressive osseous lesions. No concerning opacities in the visualized lungs. IMPRESSION: Motion artifact degrades image quality at the level of the larynx. No mass, fluid collection, or pathologically enlarged lymph nodes. The airway is adequately patent. Please note that all CT scans at this facility use dose modulation, iterative reconstruction, and/or weight-based dosing when appropriate to reduce radiation dose to as low as reasonably achievable. Dictated by Delonte Hamilton MD @ 10/28/2024 6:10:30 PM (Electronically Signed)
--- NOTE | 2024-10-28 16:40 | CRLHL7_ITS ---
For Patients: As a result of the Century Cures Act, medical imaging exams and procedure reports are released immediately into your electronic medical record. You may view this report before your referring provider. If you have questions, please contact your health care provider. INDICATION: Cough, worsening illness. TECHNIQUE: CT chest was acquired with 108 cc Isovue 370 IV contrast. COMPARISON: None. FINDINGS: Lungs and pleura: No suspicious nodules or infiltrates. No pleural effusions, pleural thickening, or pneumothorax. Heart and vasculature: Heart size is normal. Thoracic aorta and pulmonary artery are normal in caliber. Coronary artery and thoracic aorta atherosclerotic calcification. Lymph nodes/mediastinum: No mediastinal, hilar, or axillary adenopathy. Chest wall: No masses. Upper abdomen: No acute or significant findings. Bones: Unremarkable for age. IMPRESSION: No acute findings within the chest. Please note that all CT scans at this facility use dose modulation, iterative reconstruction, and/or weight-based dosing when appropriate to reduce radiation dose to as low as reasonably achievable. Dictated by Gumaro Hester MD @ 10/28/2024 6:23:18 PM (Electronically Signed)
[2024-10-28] MEDS: AMOXICILLIN/CLAVULANATE 500 mg/125 mg TABLET PO (18:45)
== END 2024-10-28 18:52 | disposition home or self-care (01) ==
PROVIDERS: Emergency Provider Family Medicine; PCP Internal Medicine
DX: J04.0 Acute laryngitis (principal); J32.9 Chronic sinusitis, unspecified
CPT/HCPCS: 36415; 70491; 71045; 71260; 80053; 82803; 83605; 83880; 84484; 85025; 86140; 87631; 94761; 99284; 99285; A9270; Q9967

== ENCOUNTER 2024-12-14 17:10 | Outpatient (CLI) | payer OTHER, SELFPAY | END 2024-12-14 17:11 | disposition home or self-care (01) | LOC: AMB 12-16 13:12 | PROVIDERS: PCP Family Medicine; Visit Provider Emergency Medicine Emergency Medical Services | DX: R41.82 Altered mental status, unspecified (principal); M79.602 Pain in left arm; M79.601 Pain in right arm | CPT/HCPCS: A0425; A0427 ==

== ENCOUNTER 2024-12-14 17:29 | Emergency (ER) | payer OTHER, SELFPAY ==
[2024-12-14 17:42] VITALS: BP 153/85; PULSE 86; RESP 16; TEMP 36.4; O2SAT 93; BMI 35.0
--- NOTE | 2024-12-14 18:06 | ED.CHESTPAIN ---
HPI - Chest Pain General Time Seen by Provider: 18:06 Date Seen: 12/14/24 Chief Complaint: Chest Pain Stated Complaint: Ill Time Seen by Provider: 12/14/24 18:01 Source: patient, RN notes reviewed and old records reviewed Mode of arrival: ambulatory Limitations: no limitations History of Present Illness HPI narrative: rosales is a very pleasant 84-year-old [employer] with history of DVT, PE, hyperlipidemia, hypertension currently on Eliquis who comes to the emergency room with epigastric and chest pain. Al tells me that he has had difficulty with a dry throat made better by water during the day but with cough drops overnight. He states this afternoon it started with a dry throat and then he started feeling pain and the epigastrium associated with a lot of burping. He notes that the burping does make him feel better. He is not nauseated, experiencing diarrhea nor has he had difficulty with his gallbladder in the past. He denies shortness of breath or chest pain but does note some uncomfortable feeling in his shoulders. No recent trauma. I do speak with patient's daughter who reports that 72 hours ago her dad had been experiencing some pain in his shoulders. 48 hours ago she found that he seemed to be more tired than usual and was sleeping in a chair at his home which is unusual for him. He had not eaten dinner yesterday but did have supper last night. Today they went shopping and he did fine. When he went to supper she states back in his room but got a phone call from nursing staff that he seemed to be having a lot of heartburn and was belching and stated that he did not feel well. Thus, they came to the emergency room. Patient notes that is very difficult for him to get around he currently uses a walker as it is hard for him to walk. He notes that sometimes he does get short of breath depending on what he is doing. This is not new for him. He denies fever or chills. He notes no worsening lower extremity edema. Related Data Home Medications ?Medication ?Instructions ?Recorded ?Confirmed apixaban 5 mg tablet (Eliquis) 5 mg PO BID 04/25/24 12/14/24 atorvastatin 40 mg tablet 40 mg PO QHS 04/25/24 12/14/24 donepezil 10 mg tablet 10 mg PO DAILY 04/25/24 12/14/24 omega-3 fatty acids 500 mg capsule 500 mg PO DAILY 04/25/24 12/14/24 (MaxEPA) sertraline 100 mg tablet 100 mg PO DAILY 04/25/24 10/28/24 multivitamin 1 tab PO QDAY 09/02/24 12/14/24 Previous Rx's ?Medication ?Instructions ?Recorded amoxicillin 500 mg-potassium 1 tab PO BID #13 tabs 10/28/24 clavulanate 125 mg tablet (Augmentin) Allergies Allergy/AdvReac Type Severity Reaction Status Date / Time No Known Drug Allergies Allergy Verified 12/14/24 17:53 Review of Systems Status of ROS Reports: 10 or more systems reviewed and unremarkable except as noted in History and below Const Denies: fever or chills Eyes Denies: change in vision ENMT Reports: throat pain ( Dry throat); Denies: neck pain, throat swelling, difficulty swallowing, hoarseness or nasal congestion Cardio Reports: chest pain and swelling of feet/ankles ( chronic and unchanged); Denies: palpitations, lightheadedness or shortness of breath with exertion Resp Denies: shortness of breath, cough or wheezing GI Reports: abdominal pain; Denies: nausea, vomiting, diarrhea or difficulty swallowing Denies: painful urination or urinary frequency Musculo Denies: back pain or neck pain Neuro Denies: headache or numbness in extremities Allergy/Immuno Denies: throat swelling or wheezing PFSH PFSH Medical History Depression ?F32.A - Depression, unspecified (ICD-10) Hypertension ?I10 - Essential (primary) hypertension (ICD-10) Hyperlipidemia ?E78.5 - Hyperlipidemia, unspecified (ICD-10) Hyperlipidemia ?E78.5 - Hyperlipidemia, unspecified (ICD-10) 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 unspecified ear and external auricular canal (ICD-10) TIA (transient ischemic attack) ?G45.9 - Transient cerebral ischemic attack, unspecified (ICD-10) DVT (deep venous thrombosis) ?I82.409 - Acute embolism and thrombosis of unspecified deep veins of unspecified lower extremity (ICD-10) Pulmonary embolism ?I26.99 - Other pulmonary embolism without acute cor pulmonale (ICD-10) Surgical History History of bilateral knee replacement ?Z96.653 - Presence of artificial knee joint, bilateral (ICD-10) Social History What is your current living situation?: I presently have a place to live Problems where you live: no known problems In the past 12 months, utilities in danger of being shut off: no In past 12 months, lack of transportation kept you from medical appts, meetings, work, or getting things needed for daily living: no In the past 12 mos, have been you worried that your food would run out before you had money to buy more?: never true In the past 12 mos, the food you bought just didn't last and you didn't have money to buy more?: never true Smoking Status: Former smoker Do you use any of these nicotine containing products: None Second hand tobacco smoke exposure: No How often do you have a drink containing alcohol: never How often do you have six or more drinks on one occasion: Never AUDIT-C Alcohol total score: 0 Non-prescribed substance use: denies use How often does anyone, including family, friends and others, physically hurt you: never How often does anyone, including family, friends and others, insult or talk down to you: never How often does anyone, including family, friends and others, threaten you with harm: never How often does anyone, including family, friends and others, scream or curse at you: never service: Yes Exam Narrative Exam Narrative: patient is alert and oriented. He is a very pleasant gentleman. Somewhat hard of hearing. Face is symmetrical. Speech is normal. Lips are dry but moist mucous membranes of the tongue. Neck is supple. Heart with a regular rate and rhythm. Lungs are clear bilaterally. Abdomen is obese. There is some tenderness in the right upper quadrant and epigastrium. No masses are palpated. Lower extremities with 1+ peripheral edema. No calf tenderness. Moving all extremities. Const Vital Signs, click to edit/add: Vital Signs - 24 hr 12/14/24 17:42 12/14/24 19:33 12/14/24 21:24 Temperature 97.6 F 97.7 F 98.7 F Pulse Rate [Pulse Oximeter] 86 81 80 Respiratory Rate 16 18 18 Blood Pressure [Right Upper Arm] 153/85 H 164/90 H 150/86 H Pulse Oximetry 93 96 95 Oxygen Delivery Method Room Air Room Air Room Air Documenting provider has reviewed patient's vital signs: yes Course Course ED Course: Differential diagnosis includes but is not limited to biliary colic, gastritis, angina, acute coronary event, UTI, viral illness. At this time will place IV and draw labs to include CBC, comprehensive panel, troponin, lipase, CRP. Will also obtain chest x-ray viral swab and place patient on straightener hand . Reevaluation(s) Reevaluation #1: Patient is anxious to go home and I do explain that I would like a 2nd set of cardiac enzymes. Given the elevated CRP I have elected to go ahead with an abdominal CT to look for abnormality especially of the gallbladder. Chest x-ray was reassuring. Urinalysis without evidence of UTI. Reevaluation #2: Unfortunately patient has had to wait extended. Due to high acuity patient in the ED. He and his daughter have been very understanding. He is given a bolus of 500 mL normal saline after the CT. Vital Signs Vital signs: Initial Vital Signs Temperature 97.6 F 12/14/24 17:42 Temperature Source Temporal Artery Scan 12/14/24 17:42 Pulse Rate 86 12/14/24 17:42 Respiratory Rate 16 12/14/24 17:42 Blood Pressure 153/85 H 12/14/24 17:42 Blood Pressure Mean 107 H 12/14/24 17:42 Blood Pressure Position Sitting 12/14/24 17:42 Pulse Oximetry 93 12/14/24 17:42 Oxygen Delivery Method Room Air 12/14/24 17:42 Vital Signs Temperature 97.6 F 12/14/24 17:42 Pulse Rate 86 12/14/24 17:42 Respiratory Rate 16 12/14/24 17:42 Blood Pressure 153/85 H 12/14/24 17:42 Pulse Oximetry 93 12/14/24 17:42 Oxygen Delivery Method Room Air 12/14/24 17:42 Temperature 98.7 F 12/14/24 21:24 Pulse Rate 80 12/14/24 21:24 Respiratory Rate 18 12/14/24 21:24 Blood Pressure 150/86 H 12/14/24 21:24 Pulse Oximetry 95 12/14/24 21:24 Oxygen Delivery Method Room Air 12/14/24 21:24 Medications Administered Medications: Discontinued Medications Generic Name Dose Route Start Last Admin Trade Name Ya PRN Reason Stop Dose Admin Sodium Chloride 500 mls @ 500 mls/hr 12/14/24 21:34 12/14/24 23:42 0.9 % Sodium Chloride 500 Ml IV 12/14/24 22:33 Infused .Q1H ONE Infusion MDM - Chest Pain MDM Narrative Medical decision making narrative: 1. Indigestion-improved. Liver function tests reassuring tonight with no evidence of cholecystitis noted on CT. While CRP is elevated there is no evidence of pneumonia cholecystitis or UTI. CT did show some go bladder wall thickening and therefore will await urine culture. Patient has tested negative for COVID influenza and RSV. He has had 2-cardiac enzymes and a reassuring EKG and straightener hand while he has been present in the ED. 2. Disposition-patient notes that he is feeling better and his daughter feels that she he is much better. At this time they do feel comfortable going home. I did explain that the CRP is elevated but in the setting of negative radiological tests and normal white count I am not sure the meaning of this. I asked that they return to the ER for fever chills worsening symptoms and as needed. I do explain the well his cardiac enzymes are negative we can never completely rule out underlying cardiac cause of pain. He may wish to inquire with his primary about a stress test. At this time however he is pain-free and we will allow him to go home. Medical Records Data Attestation: I reviewed the patient's medical records. Lab Data Attestation: I reviewed the patient's lab results. Labs: Lab Results 12/14/24 12/14/24 12/14/24 Range/Units 18:19 18:20 18:44 WBC 7.83 (4.50-11.00) K/uL RBC 3.65 L (4.30-5.90) m/uL Hgb 10.9 L (13.5-17.5) gm/dL Hct 34.0 L (37.0-53.0) % MCV 93 (80-100) fL MCH 30 (26-34) pg MCHC 32 (32-36) gm/dL RDW Coeff of Katt 14.5 (11.5-15.5) % Plt Count 220 (140-440) K/uL Neut % (Auto) 78.0 H (42.0-72.0) % Lymph % (Auto) 14.6 L (20-44) % [place] % (Auto) 4.1 (0.0-11.0) % Eos % (Auto) 2.9 (0.0-7.0) % Baso % (Auto) 0.3 (0.0-3.0) % Neut # (Auto) 6.10 (1.7-7.0) K/uL Lymph # (Auto) 1.10 (0.90-2.90) K/uL [place] # (Auto) 0.30 (0.00-0.90) K/UL Eos # (Auto) 0.23 (0.00-0.50) K/uL Baso # (Auto) 0.02 (0.00-0.30) K/uL Abs Immat Gran (auto) 0.01 (0.00-0.30) K/uL Imm/Tot Granulo (auto) 0.1 % Sodium 137 (135-149) mmol/L Potassium 3.9 (3.6-5.1) mmol/L Chloride 98 (96-114) mmol/L Carbon Dioxide 28 (20-32) mmol/L Anion Gap 11 (7-15) mEq/L BUN 23 (7-30) mg/dL Creatinine 1.0 (0.5-1.5) mg/dL Estimated Creat Clear 52.25 Estimated GFR 74 ml/min Glucose 122 H (60-115) mg/dL Calcium 8.9 (8.4-10.6) mg/dL Total Bilirubin 0.7 (0.1-1.5) mg/dL AST 19 (12-35) U/L ALT 14 (4-50) U/L Alkaline Phosphatase 66 (40-150) U/L C-Reactive Protein 17.6 H (0.5-1.0) mg/dL Total Protein 7.2 (6.0-8.3) g/dL Albumin 4.0 (3.3-5.0) g/dL Lipase 45 (23-300) U/L Urine Color (Yellow) Urine Appearance (Clear) Urine pH (5.0-8.5) Ur Specific [place] (1.000-1.030) Urine Protein (Negative) Urine Glucose (UA) (Negative) Urine Ketones (Negative) Urine Blood (Negative) Urine Nitrite (Negative) Urine Bilirubin (Negative) Urine Urobilinogen (0.2-1.0) Ur Leukocyte Esterase (Negative) Urine RBC (0-2) Urine WBC (0-5) Ur Squamous Epith Cells (None-Few) Urine Bacteria (None) Fine Granular Casts (None) SARS-CoV-2 (PCR) Negative SARS-CoV-2 (Negative) Influenza Type A (PCR) Negative PCR FLU A (Negative) Influenza Type B (PCR) Negative PCR FLU B (Negative) RSV (PCR) Negative PCR RSV (Negative) POC Troponin I 0.00 L (0.01-0.04) ng/ml 12/14/24 12/14/24 Range/Units 19:00 22:37 WBC (4.50-11.00) K/uL RBC (4.30-5.90) m/uL Hgb (13.5-17.5) gm/dL Hct (37.0-53.0) % MCV (80-100) fL MCH (26-34) pg MCHC (32-36) gm/dL RDW Coeff of [place]att (11.5-15.5) % Plt Count (140-440) K/uL Neut % (Auto) (42.0-72.0) % Lymph % (Auto) (20-44) % [place] % (Auto) (0.0-11.0) % Eos % (Auto) (0.0-7.0) % Baso % (Auto) (0.0-3.0) % Neut # (Auto) (1.7-7.0) K/uL Lymph # (Auto) (0.90-2.90) K/uL [place] # (Auto) (0.00-0.90) K/UL Eos # (Auto) (0.00-0.50) K/uL Baso # (Auto) (0.00-0.30) K/uL Abs Immat Gran (auto) (0.00-0.30) K/uL Imm/Tot Granulo (auto) % Sodium (135-149) mmol/L Potassium (3.6-5.1) mmol/L Chloride (96-114) mmol/L Carbon Dioxide (20-32) mmol/L Anion Gap (7-15) mEq/L BUN (7-30) mg/dL Creatinine (0.5-1.5) mg/dL Estimated Creat Clear Estimated GFR ml/min Glucose (60-115) mg/dL Calcium (8.4-10.6) mg/dL Total Bilirubin (0.1-1.5) mg/dL AST (12-35) U/L ALT (4-50) U/L Alkaline Phosphatase (40-150) U/L C-Reactive Protein (0.5-1.0) mg/dL Total Protein (6.0-8.3) g/dL Albumin (3.3-5.0) g/dL Lipase (23-300) U/L Urine Color Yellow (Yellow) Urine Appearance Clear (Clear) Urine pH 5.5 (5.0-8.5) Ur Specific [place] 1.020 (1.000-1.030) Urine Protein 2+ A (Negative) Urine Glucose (UA) Negative (Negative) Urine Ketones Negative (Negative) Urine Blood Negative (Negative) Urine Nitrite Negative (Negative) Urine Bilirubin Negative (Negative) Urine Urobilinogen 0.2 (0.2-1.0) Ur Leukocyte Esterase Negative (Negative) Urine RBC 0-2 (0-2) Urine WBC 0-2 (0-5) Ur Squamous Epith Cells Few (None-Few) Urine Bacteria Few A (None) Fine Granular Casts Few A (None) SARS-CoV-2 (PCR) (Negative) Influenza Type A (PCR) (Negative) Influenza Type B (PCR) (Negative) RSV (PCR) (Negative) POC Troponin I 0.01 (0.01-0.04) ng/ml Imaging Data Chest x-ray: Attestation: I have reviewed the pertinent imaging results. My impression: No infiltrates noted Radiologist's impression: FINDINGS: The sensitivity and specificity of the exam are moderately limited by the patient`s body habitus. Mediastinum: The mediastinum is normal in appearance. The heart silhouette is normal in size and morphology. Lung: Small lung volumes are noted with mild bibasilar atelectasis. No sign of pleural effusion seen. No pneumothorax is identified. Bone and Soft tissue: Unremarkable for age. IMPRESSION: 1. Small lung volumes are noted with mild bibasilar atelectasis. CT scan - abdomen: Attestation: I have reviewed the pertinent imaging results. Radiologist's impression: Lower chest: Few linear parenchymal bands, likely representing subsegmental atelectasis. Coronary artery calcifications. Liver: Unremarkable. Normal in size and attenuation. No suspicious masses. Gallbladder and bile ducts: Unremarkable. No stones or inflammation. No biliary ductal dilatation. Spleen: Unremarkable. Normal in size. No masses. Adrenal glands: Unremarkable. No nodules. Pancreas: Unremarkable. No mass or inflammation. Kidneys: Left lower pole cyst. No stones or hydronephrosis. GI tract: Colonic diverticulosis without evidence of diverticulitis. No evidence of obstruction. Appendix is not well visualized, however there is no evidence of right lower quadrant inflammatory stranding. Lymph nodes: No lymphadenopathy. Vasculature: Moderate scattered atherosclerotic calcifications. Abdominal aorta is normal in caliber. Omentum/Peritoneum/Abdominal Wall: Unremarkable. No free air or significant free fluid. Pelvis: Mild urinary bladder wall thickening and haziness. Bones: Degenerative changes. IMPRESSION: 1. Mild urinary bladder wall thickening and haziness, concerning for cystitis. Recommend correlation with urinalysis. 2. No other acute abdominal or pelvic abnormality. ECG Data Attestation: I personally reviewed and interpreted this ECG as follows: ECG interpretation date: 12/14/24 Interpretation: EKG by my read shows sinus rhythm with PAC. No acute ST or T-wave changes. QT and MN intervals within normal limits. Discharge Plan Discharge Clinical Impression: Indigestion, Atypical chest pain Patient Disposition: Home, Self-Care Condition: Improved Additional Instructions: Make sure to eat your meals daily. Even if it is a small amount. Return to the ER if you have chest pain shortness of breath or worsening symptoms. We will call you if your urine culture comes back positive as you will need antibiotic. Return to the ER if her chest pain returns or you have fever or other symptoms start. Prescriptions: No Action multivitamin Tablet 1 tab PO QDAY amoxicillin-pot clavulanate [Augmentin] 500-125 mg tablet 1 tab PO BID Qty: 13 0RF donepezil 10 mg tablet 10 mg PO DAILY sertraline 100 mg tablet 100 mg PO DAILY atorvastatin 40 mg tablet 40 mg PO QHS Eliquis 5 mg tablet 5 mg PO BID MaxEPA 500 mg capsule 500 mg PO DAILY Follow Up/Referrals: Eduard Rossi MD [Referring] - Stand Alone Forms: My[facility] Info Instructions
[2024-12-14 19:00] LABS: Basophils Absolute Auto 0.02 K/uL (0.00-0.30); Basophils Percent Auto 0.3 % (0.0-3.0); Eosinophils Absolute Auto 0.23 K/uL (0.00-0.50); Eosinophils Percent Auto 2.9 % (0.0-7.0); Hemoglobin* 10.9 gm/dL (13.5-17.5); Immature Granulocytes Abs Auto 0.01 K/uL (0.00-0.30); Immature Granulocytes Pct Auto 0.1 %; Lymphocytes Percent Auto 14.6 % (20-44); Mean Corpuscular HGB Conc 32 gm/dL (32-36); Mean Corpuscular Hemoglobin 30 pg (26-34); Mean Corpuscular Volume 93 fL (80-100); Monocytes Percent Auto 4.1 % (0.0-11.0); Platelet Count* 220 K/uL (140-440); RDW Coefficient of Variation % 14.5 % (11.5-15.5); Red Blood Count 3.65 m/uL (4.30-5.90); White Blood Count* 7.83 K/uL (4.50-11.00)
[2024-12-14 19:05] LABS: Appearance Urine Clear (Clear); Bilirubin Urine Negative (Negative); Blood Urine Negative (Negative); Color Urine Yellow (Yellow); Glucose Urine Negative (Negative); Ketones Urine Negative (Negative); Leukocyte Esterase Urine Negative (Negative); Nitrite Urine Negative (Negative); Protein Urine 2+ (Negative); Urobilinogen Urine 0.2 (0.2-1.0); pH Urine 5.5 (5.0-8.5)
[2024-12-14 19:15] LABS: Bacteria Urine Few; RBC Urine 0-2 (0-2); Squamous Epithelial Cell Urine Few (None-Few); WBC Urine 0-2 (0-5)
[2024-12-14 19:15] LABS: PCR FLU A Negative PCR FLU A (Negative); PCR FLU B Negative PCR FLU B (Negative); PCR RSV Negative PCR RSV (Negative); SARS PCR* Negative SARS-CoV-2 (Negative)
[2024-12-14 19:16] LABS: Fine Granular Casts Urine Few
[2024-12-14 19:17] LABS: Slide Review Reflex No
[2024-12-14 19:32] LABS: Chloride* 98 mmol/L (96-114); Potassium* 3.9 mmol/L (3.6-5.1); Sodium* 137 mmol/L (135-149)
[2024-12-14 19:33] VITALS: BP 164/90; PULSE 81; RESP 18; TEMP 36.5; O2SAT 96
[2024-12-14 19:34] LABS: Bilirubin Total* 0.7 mg/dL (0.1-1.5); Blood Urea Nitrogen* 23 mg/dL (7-30); Est. Creatinine Clearance* 52.25; Estimated Glomerular Filt Rate 74 ml/min
[2024-12-14 19:35] LABS: Alanine Aminotransferase* 14 U/L (4-50); Alkaline Phosphatase* 66 U/L (40-150); Anion Gap 11 mEq/L (7-15); Aspartate Amino Transferase* 19 U/L (12-35); Calcium* 8.9 mg/dL (8.4-10.6); Carbon Dioxide* 28 mmol/L (20-32); Glucose* 122 mg/dL (60-115); Lipase* 45 U/L (23-300); Total Protein* 7.2 g/dL (6.0-8.3)
[2024-12-14 19:53] LABS: C Reactive Protein* 17.6 mg/dL (0.5-1.0)
[2024-12-14 21:24] VITALS: BP 150/86; PULSE 80; RESP 18; TEMP 37.1; O2SAT 95
[2024-12-14] MEDS: 0.9 % SODIUM CHLORIDE 500 ML 500 ML IV (21:42)
[2024-12-14 23:05] LABS: Troponin, Point-of-Care* 0.01 ng/ml (0.01-0.04)
== END 2024-12-14 23:47 | disposition home or self-care (01) ==
PROVIDERS: Emergency Provider Family Medicine; PCP Family Medicine
DX: R07.89 Other chest pain (principal); K30 Functional dyspepsia
CPT/HCPCS: 36415; 71045; 74177; 80053; 81001; 83690; 84484; 85025; 86140; 87086; 87631; 93005; 96360; 96361; 99284; 99285; J7030; Q9967

== ENCOUNTER 2025-04-02 17:58 | Emergency (ER) | payer OTHER, SELFPAY ==
[2025-04-02] VITALS (18 sets, daily range): BP systolic 118–159; BP diastolic 68–95; PULSE 77–92; RESP 16–32; TEMP 37.4; O2SAT 89–99
--- NOTE | 2025-04-02 18:23 | CRLHL7_ITS ---
For Patients: As a result of the Century Cures Act, medical imaging exams and procedure reports are released immediately into your electronic medical record. You may view this report before your referring provider. If you have questions, please contact your health care provider. INDICATION: Shortness of breath, chest injury from fall couple weeks ago TECHNIQUE: Chest radiograph 1 view COMPARISON: 12/14/2024 FINDINGS: The sensitivity and specificity of the exam are moderately limited by the patient`s body habitus. Mediastinum: The mediastinum is normal in appearance. The heart silhouette is normal in size and morphology. Lung: Both lungs are unremarkable in appearance. No sign of pleural effusion seen. No pneumothorax is identified. Bone and Soft tissue: Unremarkable for age. IMPRESSION: 1. No acute cardiopulmonary disease is seen. If there is a high clinical index of suspicion for rib injury, dedicated rib series radiographs are recommended. Dictated by: Augie Chauhan MD @ 04/02/2025 18:46:47 (Electronically Signed)
[2025-04-02 18:30] LABS: HCO3 VBG 29 mmol/L (21-28); PCO2 VBG 47 mmHG (40-50); PO2 VBG 32.9 mmHG (25-47); pH VBG 7.404 (7.32-7.43)
[2025-04-02] MEDS: IPRAT-ALBUT 0.5-2.5 MG/3 ML NEB 1 NEB IH (18:36)
--- NOTE | 2025-04-02 18:36 | ED.GENADULT ---
HPI - General Adult General Date Seen: 04/02/25 Chief complaint: Chest Pain Stated complaint: Chest pains Time Seen by Provider: 04/02/25 18:14 History of Present Illness HPI narrative: Patient is an 84-year-old man brought in by his daughter for evaluation of some chest pain which he says started this morning. It has been present throughout the day although he says it was originally kind of across his entire chest and now it is more in the right lower chest. He has been short of breath today as well, some expiratory wheezing noises according to his daughter which she says happens to him every once in a while. He has been evaluated for possible asthma and has an inhaler that he can use when he has trouble with wheezing. 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 He has chronic lower extremity swelling and this is stable. He has not had fevers, has had a little bit of a cough that he says that is also stable. He may have had a fall 2-3 weeks ago according to his daughter and has complained of a little bit of right arm pain since then, but has not complained of any chest pain until today. They have not noted any bruising or swelling. He denies abdominal pain. He has a very remote history of smoking, quit 60 years ago. He does not drink. Related Data Home Medications ?Medication ?Instructions ?Recorded ?Confirmed omega-3 fatty acids 500 mg capsule 500 mg PO DAILY 04/25/24 04/02/25 (MaxEPA) multivitamin 1 tab PO QDAY 09/02/24 04/02/25 cholecalciferol (vitamin D3) 25 25 mcg PO QDAY 01/05/25 04/02/25 mcg (1,000 unit) capsule Previous Rx's ?Medication ?Instructions ?Recorded apixaban 5 mg tablet (Eliquis) 5 mg PO BID #180 tabs 01/19/25 atorvastatin 40 mg tablet 40 mg PO QHS #90 tabs 01/19/25 donepezil 10 mg tablet 10 mg PO DAILY #90 tabs 01/19/25 sertraline 100 mg tablet 100 mg PO DAILY #90 tabs 03/15/25 Allergies Allergy/AdvReac Type Severity Reaction Status Date / Time No Known Drug Allergies Allergy Verified 04/02/25 18:13 Review of Systems Status of ROS: Reports: 10 or more systems reviewed and unremarkable except as noted in History and below [facility] Medical History Depression ?F32.A - Depression, unspecified (ICD-10) Hypertension ?I10 - Essential (primary) hypertension (ICD-10) Hyperlipidemia ?E78.5 - Hyperlipidemia, unspecified (ICD-10) Hyperlipidemia ?E78.5 - Hyperlipidemia, unspecified (ICD-10) 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 unspecified ear and external auricular canal (ICD-10) TIA (transient ischemic attack) ?G45.9 - Transient cerebral ischemic attack, unspecified (ICD-10) DVT (deep venous thrombosis) ?I82.409 - Acute embolism and thrombosis of unspecified deep veins of unspecified lower extremity (ICD-10) Pulmonary embolism ?I26.99 - Other pulmonary embolism without acute cor pulmonale (ICD-10) Surgical History History of bilateral knee replacement ?Z96.653 - Presence of artificial knee joint, bilateral (ICD-10) Social History What is your current living situation?: I presently have a place to live Problems where you live: no known problems In the past 12 months, utilities in danger of being shut off: no In past 12 months, lack of transportation kept you from medical appts, meetings, work, or getting things needed for daily living: no In the past 12 mos, have been you worried that your food would run out before you had money to buy more?: never true In the past 12 mos, the food you bought just didn't last and you didn't have money to buy more?: never true Smoking Status: Former smoker Do you use any of these nicotine containing products: None Second hand tobacco smoke exposure: No How often do you have a drink containing alcohol: never How often do you have six or more drinks on one occasion: Never AUDIT-C Alcohol total score: 0 Non-prescribed substance use: denies use How often does anyone, including family, friends and others, physically hurt you: never How often does anyone, including family, friends and others, insult or talk down to you: never How often does anyone, including family, friends and others, threaten you with harm: never How often does anyone, including family, friends and others, scream or curse at you: never service: Yes Exam Narrative: Exam Narrative: Vital signs reviewed In general, an alert elderly male, looks a little short of breath. Head: Normocephalic, atraumatic. Eyes: Sclera clear. Pupils equal and reactive. ENT: Mucous membranes moist. Neck: Supple without adenopathy. Heart: Regular rate and rhythm without murmur. Lungs: Lung sounds are little diminished bilaterally, no obvious crackles. He has what I would describe as an upper airway wheeze on sort of forced expiration although I do not hear obvious wheezing in his lungs. He is slightly tachypneic. Abdomen: Soft, nontender to palpation. Specifically, no right upper quadrant tenderness, negative Jc sign. Extremities: Legs are well perfused. He does have [id number] edema in both legs, no erythema or tenderness. Neurologic: Alert, conversant. Speech fluent, face symmetric. Moves all extremities equally. Skin: Warm, dry well perfused. Affect: Normal. Const: Vital Signs, click to edit/add: Vital Signs - 24 hr 04/02/25 18:13 04/02/25 18:29 04/02/25 18:30 Temperature 99.4 F Pulse Rate 88 87 Pulse Rate [Pulse Oximeter] 87 Respiratory Rate 32 H 24 Blood Pressure Blood Pressure [Ri ght Upper Arm] 159/75 H Pulse Oximetry 95 94 94 Oxygen Delivery Me thod Room Air 04/02/25 18:33 04/02/25 18:45 04/02/25 18:47 Temperature Pulse Rate 92 88 84 Pulse Rate [Pulse Oximeter] Respiratory Rate 20 22 Blood Pressure 137/95 H 142/75 H Blood Pressure [Ri ght Upper Arm] Pulse Oximetry 99 97 96 Oxygen Delivery Me thod 04/02/25 19:00 04/02/25 19:02 04/02/25 19:15 Temperature Pulse Rate 86 87 81 Pulse Rate [Pulse Oximeter] Respiratory Rate 20 20 Blood Pressure 118/81 Blood Pressure [Ri ght Upper Arm] Pulse Oximetry 95 89 95 Oxygen Delivery Me thod 04/02/25 19:18 04/02/25 19:19 04/02/25 19:30 Temperature Pulse Rate 83 80 81 Pulse Rate [Pulse Oximeter] Respiratory Rate 18 16 16 Blood Pressure 142/88 H Blood Pressure [Ri [facility] Upper Arm] Pulse Oximetry 92 95 94 Oxygen Delivery Me thod 04/02/25 19:32 04/02/25 19:45 04/02/25 19:47 Temperature Pulse Rate 82 77 79 Pulse Rate [Pulse Oximeter] Respiratory Rate Blood Pressure 145/72 H 141/68 H Blood Pressure [Ri t Upper Arm] Pulse Oximetry 94 94 94 Oxygen Delivery Id thod Course Course ED Course: On arrival, he was placed on the monitor, an EKG was done which shows by my review a sinus rhythm, ventricular rate of 88. There is some baseline waver but otherwise I do not see any acute ST segment changes, T-waves are unremarkable. He is not hypoxic, your think it is worthwhile trying a neb to see if that improves his shortness of breath/mild tachypnea. No indication for oxygen at this point. Diagnostic considerations would include asthma or COPD, pneumonia, congestive heart failure, acute coronary syndrome, PE, viral syndrome, pneumothorax among others. Chest x-ray by my review shows no evidence of infiltrate, pneumothorax, pleural effusion or other acute findings. Read as negative by Radiology. His labs are notable for normal white blood cell count, hemoglobin of 10.9 which is stable. His INR is 1.7 consistent with his Eliquis. His D-dimer is normal at 0.41, blood gas is unremarkable. Metabolic panel is normal, magnesium 1.8. LFTs unremarkable. His CRP is 17.1. This was noted to be elevated the last time he was here, in December. He had a CT scan looking for potential cause for that and nothing was found. It is stable and I would say of unclear significance today. BNP is 770, I do not think he is in congestive heart failure today. Point of care troponin is 0.01. He has had symptoms all day, I think a single troponin is adequate to rule out acute coronary syndrome. He did have a DuoNeb. Sometime later the nurse reported that he said he was feeling much better and wanted to go home. I went in to evaluate him. Says he feels completely fine now his symptoms have resolved. He is breathing easily. I listened to his lungs, they remain clear, he still with forced expiration has that upper airway expiratory wheeze, he says he feels no different after the DuoNeb, but he thinks maybe the blankets helped him feel better. In any case, he says he feels great, he would like to go home. His daughter is comfortable with that, she says that sometimes he gets kind of fixated on things and she wonders if that is what happened today. She is going to stay with him tonight, they have compression socks and she says they planned to do a better job of wearing those. Discussed that I do not have an explanation for the chest pain, would recommend primary care follow-up for recheck in the next week, return to the ER at any time if he has recurrent symptoms. Vital Signs Vital signs: Initial Vital Signs Temperature 99.4 F 04/02/25 18:13 Temperature Source Temporal Artery Scan 04/02/25 18:13 Pulse Rate 87 04/02/25 18:13 Pulse Rhythm Regular 04/02/25 18:13 Respiratory Rate 32 H 04/02/25 18:13 Blood Pressure 159/75 H 04/02/25 18:13 Blood Pressure Mean 103 04/02/25 18:13 Blood Pressure Position Semi-Fowlers 04/02/25 18:13 Pulse Oximetry 95 04/02/25 18:13 Oxygen Delivery Method Room Air 04/02/25 18:13 Vital Signs Temperature 99.4 F 04/02/25 18:13 Pulse Rate 87 04/02/25 18:13 Respiratory Rate 32 H 04/02/25 18:13 Blood Pressure 159/75 H 04/02/25 18:13 Pulse Oximetry 95 04/02/25 18:13 Oxygen Delivery Method Room Air 04/02/25 18:13 Temperature 99.4 F 04/02/25 18:13 Pulse Rate 79 04/02/25 19:47 Respiratory Rate 16 04/02/25 19:30 Blood Pressure 141/68 H 04/02/25 19:47 Pulse Oximetry 94 04/02/25 19:47 Oxygen Delivery Method Room Air 04/02/25 18:13 Medications Administered Medications: Discontinued Medications Generic Name Dose Route Start Last Admin Trade Name Freq PRN Reason Stop Dose Admin Albuterol/Ipratropium 1 neb 04/02/25 18:23 04/02/25 18:36 Iprat-Albut 0.5-2.5 Mg/3 Ml Neb IH 04/02/25 18:24 1 neb ONCE ONE Administration Medical Decision Making Lab Data Labs: Lab Results 04/02/25 04/02/25 Range/Units 18:24 18:27 WBC 8.89 (4.50-11.00) K/uL RBC 3.74 L (4.30-5.90) m/uL Hgb 10.9 L (13.5-17.5) gm/dL Hct 34.6 L (37.0-53.0) % MCV 93 (80-100) fL MCH 29 (26-34) pg MCHC 32 (32-36) gm/dL RDW Coeff of Katt 15.7 H (11.5-15.5) % Plt Count 222 (140-440) K/uL Neut % (Auto) 85.8 H (42.0-72.0) % Lymph % (Auto) 9.4 L (20-44) % Esmeralda % (Auto) 2.8 (0.0-11.0) % Eos % (Auto) 1.7 (0.0-7.0) % Baso % (Auto) 0.1 (0.0-3.0) % Neut # (Auto) 7.60 H (1.7-7.0) K/uL Lymph # (Auto) 0.80 L (0.90-2.90) K/uL Esmeralda # (Auto) 0.20 (0.00-0.90) K/UL Eos # (Auto) 0.15 (0.00-0.50) K/uL Baso # (Auto) 0.01 (0.00-0.30) K/uL Abs Immat Gran (auto) 0.02 (0.00-0.30) K/uL Imm/Tot Granulo (auto) 0.2 % INR 1.67 H (0.91-1.10) D-Dimer Quant (PE/DVT) 0.41 (0.00-0.50) ug/ml VBG pH 7.404 (7.32-7.43) VBG pCO2 47 (40-50) mmHG VBG pO2 32.9 (25-47) mmHG VBG HCO3 29 H (21-28) mmol/L Sodium 136 (135-149) mmol/L Potassium 4.4 (3.6-5.1) mmol/L Chloride 100 (96-114) mmol/L Carbon Dioxide 27 (20-32) mmol/L Anion Gap 9 (7-15) mEq/L BUN 14 (7-30) mg/dL Creatinine 0.9 (0.5-1.5) mg/dL Estimated GFR 84 ml/min Glucose 166 H (60-115) mg/dL Calcium 8.8 (8.4-10.6) mg/dL Magnesium 1.8 (1.5-2.6) mg/dL Total Bilirubin 1.1 (0.1-1.5) mg/dL Direct Bilirubin 0.5 (0.0-0.5) mg/dL AST 39 H (12-35) U/L ALT 18 (4-50) U/L Alkaline Phosphatase 49 (40-150) U/L C-Reactive Protein 17.1 H (0.5-1.0) mg/dL NT-Pro-B Natriuret Pep 770 H (See Note) pg/mL Total Protein 7.5 (6.0-8.3) g/dL Albumin 4.0 (3.3-5.0) g/dL POC Troponin I 0.01 (0.01-0.04) ng/ml Imaging Data Chest x-ray: Attestation: I have reviewed the pertinent imaging results. Radiologist's impression: Patient: Ajith Peña MR#: [id number] : 1940 Acct:[id number] Loc: ED Service Date: 04/02/[address]: Ordering Physician: Araseli Buchanan M.D. Date of Service: 04/02/25 Procedure(s): XR chest 1V portable Accession Number(s): [id number] cc: Westley Caldera M.D.; Araseli Buchanan M.D.~ For Patients: As a result of the Century Cures Act, medical imaging exams and procedure reports are released immediately into your electronic medical record. You may view this report before your referring provider. If you have questions, please contact your health care provider. INDICATION: Shortness of breath, chest injury from fall couple weeks ago TECHNIQUE: Chest radiograph 1 view COMPARISON: 12/14/2024 FINDINGS: The sensitivity and specificity of the exam are moderately limited by the patient`s body habitus. Mediastinum: The mediastinum is normal in appearance. The heart silhouette is normal in size and morphology. Lung: Both lungs are unremarkable in appearance. No sign of pleural effusion seen. No pneumothorax is identified. Bone and Soft tissue: Unremarkable for age. IMPRESSION: 1. No acute cardiopulmonary disease is seen. If there is a high clinical index of suspicion for rib injury, dedicated rib series radiographs are recommended. Dictated by: Augie Chauhan MD @ 04/02/2025 18:46:47 Discharge Plan Discharge Clinical Impression: Chest pain Patient Disposition: Home, Self-Care Condition: Improved Instructions: Chest Pain (ED) Additional Instructions: Return at any time for recurrent chest pain, difficulty breathing, fevers, chills, weakness, etcetera. Follow-up with primary care for recheck in the next week. Prescriptions: No Action multivitamin Tablet 1 tab PO QDAY cholecalciferol (vitamin D3) 25 mcg (1,000 unit) capsule 25 mcg PO QDAY MaxEPA 500 mg capsule 500 mg PO DAILY Eliquis 5 mg tablet 5 mg PO BID Qty: 180 2RF atorvastatin 40 mg tablet 40 mg PO QHS Qty: 90 2RF donepezil 10 mg tablet 10 mg PO DAILY Qty: 90 2RF sertraline 100 mg tablet 100 mg PO DAILY Qty: 90 1RF Follow Up/Referrals: Westley Caldera MD [Primary Care Provider, Family Practice] Stand Alone Forms: [facility] Info Instructions
[2025-04-02 18:44] LABS: Basophils Absolute Auto 0.01 K/uL (0.00-0.30); Basophils Percent Auto 0.1 % (0.0-3.0); Eosinophils Absolute Auto 0.15 K/uL (0.00-0.50); Eosinophils Percent Auto 1.7 % (0.0-7.0); Hematocrit 34.6 % (37.0-53.0); Hemoglobin* 10.9 gm/dL (13.5-17.5); Immature Granulocytes Abs Auto 0.02 K/uL (0.00-0.30); Immature Granulocytes Pct Auto 0.2 %; Lymphocytes Percent Auto 9.4 % (20-44); Mean Corpuscular HGB Conc 32 gm/dL (32-36); Mean Corpuscular Hemoglobin 29 pg (26-34); Mean Corpuscular Volume 93 fL (80-100); Monocytes Percent Auto 2.8 % (0.0-11.0); Neutrophils Percent Auto 85.8 % (42.0-72.0); Platelet Count* 222 K/uL (140-440); RDW Coefficient of Variation % 15.7 % (11.5-15.5); Red Blood Count 3.74 m/uL (4.30-5.90); White Blood Count* 8.89 K/uL (4.50-11.00)
[2025-04-02 18:45] LABS: Slide Review Reflex No
[2025-04-02 18:49] LABS: Troponin, Point-of-Care* 0.01 ng/ml (0.01-0.04)
[2025-04-02 18:56] LABS: Chloride* 100 mmol/L (96-114); Sodium* 136 mmol/L (135-149)
[2025-04-02 18:57] LABS: Potassium* 4.4 mmol/L (3.6-5.1)
[2025-04-02 18:59] LABS: Alanine Aminotransferase* 18 U/L (4-50); Anion Gap 9 mEq/L (7-15); Aspartate Amino Transferase* 39 U/L (12-35); Blood Urea Nitrogen* 14 mg/dL (7-30); Carbon Dioxide* 27 mmol/L (20-32); Creatinine* 0.9 mg/dL (0.5-1.5); Estimated Glomerular Filt Rate 84 ml/min; INR 1.67 (0.91-1.10); Prothrombin Time 20.7 Seconds; Total Protein* 7.5 g/dL (6.0-8.3)
[2025-04-02 19:00] LABS: Alkaline Phosphatase* 49 U/L (40-150); Bilirubin Direct* 0.5 mg/dL (0.0-0.5); Bilirubin Total* 1.1 mg/dL (0.1-1.5); Calcium* 8.8 mg/dL (8.4-10.6); Glucose* 166 mg/dL (60-115); Magnesium* 1.8 mg/dL (1.5-2.6)
[2025-04-02 19:01] LABS: D Dimer Quantitative* 0.41 ug/ml (0.00-0.50)
[2025-04-02 19:27] LABS: C Reactive Protein* 17.1 mg/dL (0.5-1.0); NT Pro B Type NatriureticPept* 770 pg/mL (See Note)
== END 2025-04-02 20:23 | disposition home or self-care (01) ==
PROVIDERS: Emergency Provider Emergency Medicine; PCP Family Medicine
DX: R07.9 Chest pain, unspecified (principal); R06.02 Shortness of breath; R06.2 Wheezing; R05.9 Cough, unspecified; R60.9 Edema, unspecified; Z79.01 Long term (current) use of anticoagulants
CPT/HCPCS: 36415; 71045; 80048; 80076; 82803; 83735; 83880; 84484; 85025; 85379; 85610; 86140; 93005; 94640; 94761; 99284